=== PATIENT | male | born 1980 | race Caucasian/White ===

== ENCOUNTER 2018-05-21 16:23 | Emergency (ER) | payer OTHER ==
[~2018-05-21] VITALS: Ht 172.7 cm; Wt 77.1 kg
[~2018-05-21 16:23] MED LIST: BACTRIM DS TAB1 EACH PO; NORCO 5-325 TA1 EACH PO
[2018-05-21] MEDS ORDERED: NORCO 5-325 TA1 EACH PO (18:44)
[2018-05-21] MEDS ORDERED: IBUPROFEN 800800 M1 PO (18:44)
[2018-05-21] MEDS ORDERED: KEFLEX500 M1 PO (18:44)
[2018-05-21 18:55] VITALS: BP 143/87
== END 2018-05-21 18:57 | disposition home or self-care (01) ==
LOC: M.ERS 16:23
DX: S69.82XA Other specified injuries of left wrist, hand and finger(s), initial encounter (principal); F17.200 Nicotine dependence, unspecified, uncomplicated; W51.XXXA Accidental striking against or bumped into by another person, initial encounter; Y93.89 Activity, other specified; Y92.89 Other specified places as the place of occurrence of the external cause; Y99.8 Other external cause status

== ENCOUNTER 2019-04-05 10:54 | Emergency (ER) | payer OTHER ==
[~2019-04-05] VITALS: Ht 175.3 cm; Wt 72.6 kg
[~2019-04-05 10:54] MED LIST changes: +IBUPROFEN 800800 M1 PO; +KEFLEX500 M1 PO
[2019-04-05] MEDS ORDERED: KEFLEX500 M1 PO (12:09)
[2019-04-05 13:04] LABS: SOURCE SYNOVIAL; TOTAL VOLUME 9 ml
[2019-04-05 13:05] LABS: CLARITY PURULENT
[2019-04-05 13:23] VITALS: BP 167/107
[2019-04-05 14:03] LABS: BF RBC 110000 /mm3
[2019-04-05 14:05] LABS: BF LYMPHOCYTES 8 %; BF MONOCYTES 3 %; BF POLYS 89 %; TOTAL CELL COUNT 79500 /mm3
== END 2019-04-05 13:23 | disposition home or self-care (01) ==
LOC: M.ERS 10:54
PROVIDERS: Emergency Medicine
DX: M70.41 Prepatellar bursitis, right knee (principal); Y93.89 Activity, other specified